=== PATIENT | male | born 1950 | race Caucasian/White ===

== ENCOUNTER → 2016-11-23 | Outpatient (CLI) | payer OTHER ==
[~2016-11-23] MED LIST: ALBUTEROL; ALTOPREV60 MG PO; ASPIR 8181 MG PO; ASPIR-LOW81 MG PO; BRILINTA90 MG PO; CALCIUM600 MG PO; COZAAR50 MG PO; CRESTOR10 MG PO; FISH OIL 1,2001 EAC1 PO; FLUNISOLIDE25 ML INH; LEVAQUIN500 MG PO; LOPRESSOR50 MG PO; LOSARTAN POTASS50 MG PO; LOVASTATIN40 MG PO; MAGNESIUM250 MG PO; METOPROLOL SUCC50 MG PO; MULTI-DAY VITA1 EACH PO; MULTIVITAMINS1 EAC1 PO; NASALIDE INH SO25 ML; NASONEX SPRAY 117 GM INH; OMEGA 3 FISH O1 EACH PO; POTASSIUM99 M1 PO; PREDNISONE5 MG PO; PROAIR HFA8.5 GM INH; SYMBICORT 160-1 INHA INH; SYMBICORT 16010.2 GM INH; TESTOSTERONE; THERAGRAN M TAB1 EA INH; TYLENOL 325MG325 MG PO; ZYRTEC10 M3 PO; ZYRTEC10 MG PO
== END ==
DX: I21.4 Non-ST elevation (NSTEMI) myocardial infarction (principal); Z88.5 Allergy status to narcotic agent; Z88.8 Allergy status to other drugs, medicaments and biological substances; Z88.1 Allergy status to other antibiotic agents
CPT/HCPCS: 78452; 93017; A9502; J2785

== ENCOUNTER → 2016-11-28 | Outpatient (CLI) | payer OTHER ==
[2016-11-28 10:51] LABS: HEMOGLOBIN 15.6 gm/dl (14.0-17.5); RED BLOOD COUNT 5.07 M/UL (4.20-5.50); WHITE BLOOD COUNT 9.4 K/UL (4.5-11.0)
== END ==
LOC: LAB 10:24
PROVIDERS: Internal Medicine
DX: Z01.818 Encounter for other preprocedural examination (principal); I25.10 Atherosclerotic heart disease of native coronary artery without angina pectoris; Z88.5 Allergy status to narcotic agent; Z88.1 Allergy status to other antibiotic agents; Z88.0 Allergy status to penicillin
CPT/HCPCS: 36415; 80048; 85025; 85610; 85730; 93005

== ENCOUNTER 2016-11-30 05:53 | Outpatient (CLI) | payer OTHER ==
[~2016-11-30 05:53] MED LIST changes: -ALBUTEROL; -ASPIR 8181 MG PO; -LOSARTAN POTASS50 MG PO; -METOPROLOL SUCC50 MG PO; -MULTI-DAY VITA1 EACH PO; -NASALIDE INH SO25 ML; -OMEGA 3 FISH O1 EACH PO; -PROAIR HFA8.5 GM INH; -SYMBICORT 16010.2 GM INH; -TESTOSTERONE; -ZYRTEC10 MG PO
[2016-11-30] MEDS ORDERED: BRILINTA90 MG PO (07:07)
[2016-11-30] MEDS ORDERED: ASPIR 8181 MG PO (07:07)
[2016-11-30] MEDS ORDERED: CALCIUM600 MG PO (07:09)
[2016-11-30] MEDS ORDERED: NASALIDE INH SO25 ML (07:10)
[2016-11-30] MEDS ORDERED: LOSARTAN POTASS50 MG PO (07:11)
[2016-11-30] MEDS ORDERED: ALTOPREV60 MG PO (07:12)
[2016-11-30] MEDS ORDERED: METOPROLOL SUCC50 MG PO (07:13)
[2016-11-30] MEDS ORDERED: MAGNESIUM250 MG PO (07:13)
[2016-11-30] MEDS ORDERED: MULTI-DAY VITA1 EACH PO (07:14)
[2016-11-30] MEDS ORDERED: OMEGA 3 FISH O1 EACH PO (07:14)
[2016-11-30] MEDS ORDERED: SYMBICORT 16010.2 GM INH (07:15)
[2016-11-30] MEDS ORDERED: TESTOSTERONE (07:17)
[2016-11-30] MEDS ORDERED: ZYRTEC10 MG PO (07:17)
[2016-11-30] MEDS ORDERED: ALBUTEROL (07:18)
[2016-11-30] MEDS ORDERED: PROAIR HFA8.5 GM INH (07:20)
[2016-12-01] MEDS ORDERED: LOPRESSOR50 MG PO (06:37)
== END 2016-12-01 10:08 | disposition home or self-care (01) ==
LOC: CATH 05:53 → PROG CARE 10:30 → CATH 12-01 10:08
DX: I25.119 Atherosclerotic heart disease of native coronary artery with unspecified angina pectoris (principal); R94.39 Abnormal result of other cardiovascular function study; I10 Essential (primary) hypertension; I25.2 Old myocardial infarction; J44.9 Chronic obstructive pulmonary disease, unspecified; E78.5 Hyperlipidemia, unspecified; I47.1 Supraventricular tachycardia; Z95.5 Presence of coronary angioplasty implant and graft; Z87.891 Personal history of nicotine dependence; Z98.890 Other specified postprocedural states; Z88.5 Allergy status to narcotic agent; Z88.0 Allergy status to penicillin; Z88.3 Allergy status to other anti-infective agents; Z88.8 Allergy status to other drugs, medicaments and biological substances; Z79.82 Long term (current) use of aspirin; Z79.899 Other long term (current) drug therapy; J01.00 Acute maxillary sinusitis, unspecified; J01.90 Acute sinusitis, unspecified; J45.909 Unspecified asthma, uncomplicated; E29.1 Testicular hypofunction; M81.0 Age-related osteoporosis without current pathological fracture; F41.9 Anxiety disorder, unspecified; Z86.718 Personal history of other venous thrombosis and embolism; K57.90 Diverticulosis of intestine, part unspecified, without perforation or abscess without bleeding
CPT/HCPCS: 36415; 82550; 82553; 84484; 85347; 94640; C1725; C1769; C1874; C1887; C1894; C9600; J0360; J0461; J0583; J1644; J2250; J3010; J7030; Q9963

== ENCOUNTER → 2021-05-18 | Outpatient (CLI) | payer OTHER ==
[~2021-05-18] MED LIST changes: +ALBUTEROL; +ALBUTEROL2.5 MG/3 M INH; +ASPIR 8181 MG PO; +ASPIRIN CHEWABL81 MG PO; +B COMPLEX # 11 EACH PO; +BACTROBAN OINT22 GM TOP; +CEFDINIR300 MG PO; +COZAAR 50MG TAB50 MG PO; +CRESTOR20 MG PO; +DYMISTA NASAL S23 GM; +FISH OIL 1,2001 EACH PO; +FLUNISOLIDE25 ML; +LOSARTAN POTASS50 MG PO; +MAGNESIUM250 M1 PO; +METOPROLOL SUCC50 MG PO; +METOPROLOL TART50 MG PO; +MULTI-DAY VITA1 EACH PO; +MULTI-VITAMIN1 EACH PO; +NASALIDE INH SO25 ML; +NORCO 5-325 TA1 EACH PO; +OMEGA 3 1,0001 EACH PO; +PLAVIX 75 MG TA75 MG PO; +PLAVIX75 MG PO; +PROAIR HFA8.5 GM INH; +SELENIUM200 MC1 PO; +SYMBICORT 16010.2 GM INH; +TESTOSTERONE; +VITAMIN B-12100 MCG PO; +VITAMIN C 500500 MG PO; +VITAMIN D2000 UNIT PO; +ZYRTEC10 MG PO
== END ==
LOC: EXRD 14:01
DX: I63.9 Cerebral infarction, unspecified (principal); R20.0 Anesthesia of skin; R26.81 Unsteadiness on feet; I65.09 Occlusion and stenosis of unspecified vertebral artery
CPT/HCPCS: 93880